=== PATIENT | female | born 1950 | race Caucasian/White ===

== ENCOUNTER 2022-09-12 12:45 | Outpatient (CLI) | payer MEDICARE ==
[~2022-09-12] VITALS: Ht 160 cm; Wt 54.9 kg
[2022-09-12] MEDS ORDERED: OXYC-658 PO (13:51)
[2022-09-12] MEDS ORDERED: ALBU6.7H14 INH (13:51)
[2022-09-12] MEDS ORDERED: METH-604 PO (13:51)
[2022-09-12] MEDS ORDERED: ESOM20CA PO (13:51)
[2022-09-12] MEDS ORDERED: CETI-90 PO (13:51)
[2022-09-12] MEDS ORDERED: CHOL200012 PO (13:51)
[2022-09-12] MEDS ORDERED: MELA10TA20 PO (13:51)
[2022-09-12] MEDS ORDERED: PREVCR VG (13:51)
[2022-09-12] MEDS ORDERED: CYAN50007 PO (13:51)
[2022-09-18] MEDS ORDERED: ringers solution, lacted 1,000 ML IV SCH (05:00)
[2022-09-18] MEDS ORDERED: oxymetazoline 15 ML nasal spray NS ONE (05:30)
[2022-09-18] MEDS ORDERED: tranexamic acid inj. 1,000 MG in normal saline IV soln 100ML IV ONE (05:30)
[2022-09-18] MEDS ORDERED: famotidine 20mg tablet PO ONE (05:30)
== END 2022-09-12 23:59 | disposition home or self-care (01) ==
LOC: LAB 12:45 → EDSTATUS 09-18 08:00
PROVIDERS: ATTEND Otolaryngology
DX: Z01.818 Encounter for other preprocedural examination (principal); I49.3 Ventricular premature depolarization; Z20.822 Contact with and (suspected) exposure to COVID-19; J34.89 Other specified disorders of nose and nasal sinuses; J34.2 Deviated nasal septum; J32.9 Chronic sinusitis, unspecified
CPT/HCPCS: 87811; 93005; J3490; J7120

== ENCOUNTER 2022-10-09 10:16 | Day surgery (SDC) | payer MEDICARE ==
[2022-10-09] VITALS (17 sets, daily range): BP systolic 122–176; BP diastolic 66–126
[~2022-10-09] VITALS: Ht 157.5 cm; Wt 59.8 kg
[~2022-10-09 10:16] MED LIST: ALBU6.7H14 INH; CETI-90 PO; CHOL200012 PO; CYAN50007 PO; ESOM20CA PO; LIDOcaine 1% W/epiNEPHrine 1:100,000 20ml vial ONE; MELA10TA20 PO; METH-604 PO; OXYC-658 PO; PREVCR VG; cocaine 4% topical solution 4ml bottle ONE; famotidine 20mg tablet PO ONE; mupirocin 2% ointment 22GM ONE; oxymetazoline 15 ML nasal spray NS ONE; ringers solution, lacted 1,000 ML IV SCH; tranexamic acid 100mg/ml inj. ONE; tranexamic acid inj. 1,000 MG in normal saline IV soln 100ML IV ONE
[2022-10-09] MEDS ORDERED: morphine 2 MG/ML inj. syringe IV PRN (11:00)
[2022-10-09] MEDS ORDERED: proCHLORperazine 10 MG/2 ml inj IV PRN (11:00)
[2022-10-09] MEDS ORDERED: morphine 4 MG/ML inj SYRINge IV PRN (11:00)
[2022-10-09] MEDS ORDERED: ringers solution, lacted 1,000 ML IV SCH (11:00)
[2022-10-09] MEDS ORDERED: ondansetron/PF 4mg/2ml inj IV PRN (11:00)
[2022-10-09] MEDS ORDERED: meperidine/PF 25mg/ml syringe IV PRN ×2 (11:00)
[2022-10-09] MEDS ORDERED: mupirocin 2% ointment 22GM ONE (11:48)
[2022-10-09] MEDS ORDERED: sevoflurane 250ml liquid IH ONE (12:04)
[2022-10-09] MEDS ORDERED: fentaNYL/PF 50MCG/1 ML 2ML syringe ONE (12:05)
[2022-10-09] MEDS ORDERED: midazolam 1 mg/ML 2ml injection ONE (12:05)
[2022-10-09] MEDS ORDERED: propofol inj 20 ML IV ONE (12:05)
[2022-10-09] MEDS ORDERED: dexamethasone sod phosphate 4mg/ml inj. ONE (12:22)
[2022-10-09] MEDS ORDERED: epiNEPHrine 1 mg/ml inj IR ONE (12:30)
[2022-10-09] MEDS ORDERED: epiNEPHrine 1 mg/ml 30ml MDV ONE (13:31)
[2022-10-09] MEDS ORDERED: ondansetron/PF 4mg/2ml inj ONE (14:03)
[2022-10-09] MEDS ORDERED: labetalol 20mg/4ml (5mg/ml) syringe IV ONE (14:05)
--- NOTE | 2022-10-09 14:25 | NUR ---
Received from OR via [facility], accompanied by Anesthesiologist DR SMYTH and report given by Anesthesiologist. PT IS GROGGY BUT RESPONDS TO VERBAL STIMULI AND IS ABLE TO CROWE. PT PLACED ON BEDSIDE MONITOR. PT IS IN SR WITH RATE IN LOW 60'S AND IS HYPERTENSIVE. WILL MONITOR CLOSELY AND TREAT ORDERED. PT HAS 20G PIV TO RT HAND WITH LR INFUSING ORDERED. PT DID NOT HAVE COTTONOIDS IN PLACE ON ARRIVAL TO PACU. PT HAS NO DRAINAGE NOTED FROM [facility]. PT STATES BURNING SENSATION, WILL CHECK AVAIL MEDS AND TREAT ORDERED AND CONTINUE TO ASSESS.
--- NOTE | 2022-10-09 14:40 | NUR ---
DR SMYTH NOTIFIED OF PT'S CONTINUED HYPERTENSION. ORDER RECEIVED TO GIVE 5MG HYDRALAZINE Q5MIN PRN WITH MAX DOSE OF 20MG. WILL CONTINUE TO ASSESS.
[2022-10-09] MEDS: hydrALAZINE 20mg/ml inj. IV PRN ×3 (15:12→15:27)
[2022-10-09] MEDS: meperidine/PF 25mg/ml syringe IV PRN ×2 (15:48→16:23)
--- NOTE | 2022-10-09 16:13 | NUR ---
DR MONGE'S OFFICE CALLED TWICE IN REGARDS TO PT HAVING QUESTIONS ON NOW TO TAKE PAIN MEDS. PT HAS ACTIVE PAIN MED RX FROM OUTSIDE MD. DR MONGE'S OFFICE DID FAX OVER A PAPER WITH INSTRUCTIONS BUT IT WAS MISSING SOME INFORMATION. ELEUTERIO AT DR MONGE'S OFFICE STATED SHE WAS GOING TO CALL DR MONGE AND ASK HIM TO PROVIDE DETAILED INSTRUCTIONS DURING HIS CALL TO PT THIS EVENING. ELEUTERIO ALSO STATES SHE WILL BE SENDING A DETAILED EMAIL WELL AND STATES THE OFFICE HAS ALREADY PROVIDED DETAILED INSTRUCTIONS.
[2022-10-09] MEDS ORDERED: salt irrigation nasal spray 45 ML SPRAY NS PRN (16:25)
--- NOTE | 2022-10-09 16:35 | NUR ---
DR MONGE CALLED TO CHECK ON PT. UPDATED HIM ON PATIENT STATUS, BP HAS IMPROVED AND SBP HAS MAINTAINED IN 130'S AFTER 3 DOSES OF HYDRALAZINE. PER DR MONGE PT IS TO START THE SALINE NASAL SPRAY AT HOME IN STEAD OF IN PACU. DR MONGE WILL CALL PT THIS EVENING TO FOLLOW UP AND TO FURTHER ANSWER ANY QUESTIONS PT HAS IN REGARDS TO PAIN MED USAGE. DISCHARGE INSTRUCTIONS HAVE BEEN DISCUSSED WITH PT WELL PT'S THANIA.
--- NOTE | 2022-10-09 17:20 | NUR ---
PATIENT A&OX4, DENIES PAIN, V/S WNL, NEUROVASCULAR CHECKS INTACT, SCD OFF,NO VISIBLE DRAINAGE SEEN, 20G PIV D/C. PT UP AND DRESSED, DISCUSSED HOME CARE FOR NASAL IRRIGATION AND MEDICATIONS, PT TO START USE OF OCEAN SPRAY AT HOME AND NOT IN PACU PER DR MONGE AND OINTMENT, ALL QUESTIONS ANSWERED, PT TAKEN WITH SUPPLIES AND BELONGINGS TO VEHICLE, TRANSPORTED BY HOME.
== END 2022-10-09 17:07 | disposition home or self-care (01) ==
LOC: PAS 10:16
PROVIDERS: ATTEND Otolaryngology
DX: J32.8 Other chronic sinusitis (principal); J34.2 Deviated nasal septum; J34.3 Hypertrophy of nasal turbinates; Z20.822 Contact with and (suspected) exposure to COVID-19; J45.909 Unspecified asthma, uncomplicated; K21.9 Gastro-esophageal reflux disease without esophagitis; E05.00 Thyrotoxicosis with diffuse goiter without thyrotoxic crisis or storm; Z98.890 Other specified postprocedural states; Z98.49 Cataract extraction status, unspecified eye; Z85.3 Personal history of malignant neoplasm of breast; Z86.14 Personal history of Methicillin resistant Staphylococcus aureus infection; Z88.8 Allergy status to other drugs, medicaments and biological substances; Z79.899 Other long term (current) drug therapy
CPT/HCPCS: 30520; 31255; 31267; 61782; 82948; 87070; 87075; 87102; 87176; 87811; A6402; J0171; J0360; J1100; J2175; J2250; J2270; J2405; J2704; J3010; J3490; J7030; J7050; J7120; Z7506; Z7508; Z7512; A4618; A6449; A7000

== ENCOUNTER 2024-01-21 10:33 | Day surgery (SDC) | payer MEDICARE ==
[~2024-01-21] VITALS: Ht 160 cm; Wt 62.7 kg
[2024-01-21] VITALS (8 sets, daily range): BP systolic 130–146; BP diastolic 82–100; PULSE 65–79; RESP 12–16; TEMP 97.5; O2SAT 98–100
[~2024-01-21 10:33] MED LIST changes: -LIDOcaine 1% W/epiNEPHrine 1:100,000 20ml vial ONE; +LOSA25TA41 PO; -MELA10TA20 PO; -METH-604 PO; -cocaine 4% topical solution 4ml bottle ONE; -famotidine 20mg tablet PO ONE; -mupirocin 2% ointment 22GM ONE; -oxymetazoline 15 ML nasal spray NS ONE; -ringers solution, lacted 1,000 ML IV SCH; -tranexamic acid 100mg/ml inj. ONE; -tranexamic acid inj. 1,000 MG in normal saline IV soln 100ML IV ONE
[2024-01-21] MEDS: famotidine 20mg tablet PO ONE (11:09)
[2024-01-21] MEDS: ringers solution, lacted 1,000 ML IV SCH (11:10)
[2024-01-21] MEDS ORDERED: gelatin sponge, absorbable (Gelfoam 100) sponge TP ONE (12:21)
[2024-01-21] MEDS ORDERED: epiNEPHrine 1 mg/ml inj ONE (12:21)
[2024-01-21] MEDS ORDERED: fentaNYL/PF 50MCG/1 ML 2ML syringe ONE (12:29)
[2024-01-21] MEDS ORDERED: midazolam 1 mg/ML 2ml injection ONE (12:30)
[2024-01-21] MEDS ORDERED: propofol inj 20 ML IV ONE (12:32)
[2024-01-21] MEDS ORDERED: LIDOcaine 2% (20mg/ml) 5ml vial ONE (12:32)
[2024-01-21] MEDS ORDERED: sevoflurane 250ml liquid IH ONE (12:37)
[2024-01-21] MEDS ORDERED: morphine 4 MG/ML inj SYRINge IV PRN (12:45)
[2024-01-21] MEDS ORDERED: proCHLORperazine 10 MG/2 ml inj IV PRN (12:45)
[2024-01-21] MEDS ORDERED: ondansetron/PF 4mg/2ml inj IV PRN (12:45)
[2024-01-21] MEDS ORDERED: enalaprilat dihydrate 2.5mg/2ml vial IV PRN (12:45)
[2024-01-21] MEDS ORDERED: meperidine/PF 25mg/ml syringe IV PRN ×3 (12:45)
[2024-01-21] MEDS ORDERED: ringers solution, lacted 1,000 ML IV SCH (12:45)
[2024-01-21] MEDS ORDERED: labetalol 20mg/4ml (5mg/ml) syringe IV PRN (12:45)
[2024-01-21] MEDS ORDERED: morphine 2 MG/ML inj. syringe IV PRN (12:45)
--- NOTE | 2024-01-21 12:51 | NUR ---
[facility] OUT OF STOCK. UNABLE TO CHANGE DIRECTIONS TO EACH EAR. LET OR TEAM KNOW & THEY WILL INFORM DR MONGE. UPDATED TO EAR IN COMMENTS
[2024-01-21] MEDS: ofloxacin 0.3% 5ml otic drops EACH EAR ONE (13:00)
[2024-01-21] MEDS ORDERED: ondansetron/PF 4mg/2ml inj ONE (13:20)
--- NOTE | 2024-01-21 13:38 | NUR ---
Received from OR via [facility], accompanied by Anesthesiologist DR HAYNES and report given by Anesthesiologist. PATIENT AWAKE, DENIES PAIN, VSS, 20G PIV TO RIGHT WRIST, BILATERAL EAR COTTON BALL DRESSINGS C/D/I. WILL CONTINUE TO CLOSELY MONITOR Addendum: 01/21/24 at 1406 by Alie Zuniga RN Amended: Links added.
--- NOTE | 2024-01-21 14:58 | NUR ---
ALL DISCHARGE CRITERIA HAS BEEN MET. VSS, NO C/O PAIN, VOIDING AND ABLE TO SAFELY AMBULATE AND TRANSFER SELF. IV TAKEN OUT WITHOUT ANY COMPLICATIONS. ALL DISCHARGE INSTRUCTIONS COVERED WITH PATIENT AND ALL QUESTIONS ANSWERED. PATIENT TAKEN OUT VIA WHEELCHAIR WITH ALL BELONGINGS TO PERSONAL VEHICLE WHERE FAMILY DROVE PATIENT HOME. Addendum: 01/21/24 at 1510 by Alie Zuniga RN Amended: Links added.
[2024-01-21] MEDS ORDERED: ofloxacin 0.33% 5ml ophthalmic drops EACHEYE SCH (20:00)
== END 2024-01-21 14:58 | disposition home or self-care (01) ==
LOC: PAS 10:33
PROVIDERS: ATTEND Otolaryngology
DX: H65.493 Other chronic nonsuppurative otitis media, bilateral (principal); H74.03 Tympanosclerosis, bilateral; K21.9 Gastro-esophageal reflux disease without esophagitis; G43.909 Migraine, unspecified, not intractable, without status migrainosus
CPT/HCPCS: 69436; 82948; 93005; A4618; J0171; J2001; J2250; J2405; J2704; J3010; J7120; Z7506; Z7508; Z7512; Z7610; J3490